=== PATIENT | male | born 1990 ===

== ENCOUNTER 2017-02-21 05:40 | Inpatient (IN) | payer OTHER ==
[~2017-02-21] VITALS: Ht 172.7 cm; Wt 68.0 kg
[2017-02-21] VITALS (18 sets, daily range): BP systolic 103–147; BP diastolic 53–93
[~2017-02-21 05:40] MED LIST: NKM
[2017-02-21] MEDS ORDERED: Bupivacaine w/Epi 0.5% 30ml Vial INJ ONE (06:37)
[2017-02-21] MEDS ORDERED: Thrombin 5000 units TOPIC ONE (06:37)
[2017-02-21] MEDS ORDERED: Bacitracin 50000 Units Vial ONE (06:38)
[2017-02-21] MEDS ORDERED: Gelfoam Absorbable 1gm powder pkt TOPIC ONE (06:38)
[2017-02-21] MEDS ORDERED: Thrombin 5000 units spray kit TOPIC ONE (06:38)
--- NOTE | 2017-02-21 07:06 | Pre-Procedure Note/Attestation ---
Pre-Procedure Note/Attestation Complete Prior to Procedure Procedure Narrative: Disc Herniation with Instability L5/S1 Planned procedure: ALIF L5/S1 Indications for Procedure Pre-Operative Diagnosis: Disc Herniation with Instability L5/S1 Attestation I attest that I discussed the nature of the procedure; its benefits; risks and complications; and alternatives (and the risks and benefits of such alternatives ), prior to the procedure, with the patient (or the patient's legal exhibit display representative). I attest that, if there was a reasonable possibility of needing a blood transfusion, the patient (or the patient's legal exhibit display representative) was given the [facility] standardized written summary, pursuant to the [place] Blood Safety Act ([place] Health and Safety Code # 1645, as amended). I attest that I re-evaluated the patient just prior to the surgery and that there has been no change in the patient's H&P, except as documented below: MARGI GENAO Feb 21, 2017 07:06
[2017-02-21] MEDS ORDERED: Propofol 10mg/ml 100ml btl IV ONE (08:00)
[2017-02-21] MEDS ORDERED: LR 1000ml ONE (08:00)
[2017-02-21] MEDS ORDERED: Midazolam 2mg/2ml Inj ONE (08:00)
[2017-02-21] MEDS ORDERED: fentaNYL 100 mcg/2 mL IV ONE (08:00)
[2017-02-21] MEDS ORDERED: NS Irrig 1000ml ONE (08:00)
[2017-02-21] MEDS ORDERED: Sterile Water Irrig 1000ml IRRIG ONE (08:00)
[2017-02-21] MEDS ORDERED: Zemuron 50mg/5ml Inj IV ONE (08:00)
[2017-02-21] MEDS ORDERED: LR 1000ml 1,000 ML IVLG SCH (08:03)
--- NOTE | 2017-02-21 08:08 | Anethesia Preoperative Eval ---
Anesthesia Pre-op PMH/ROS General Date of Evaluation: Feb 21, 2017 Time of Evaluation: 07:00 Anesthesiologist: Teresa ASA Score: ASA 1 Mallampati Score Class I : Soft palate, uvula, fauces, pillars visible Class II: Soft palate, uvula, fauces visible Class III: Soft palate, base of uvula visible Class IV: Only hard plate visible Mallampati Classification: Class I Surgeon: David Diagnosis: Disc bulge Surgical Procedure: ALIF L5-S1 Anesthesia History: none Social History: smoking - 1 PPD Family History: no anesthesia problems Allergies: Coded Allergies: No Known Allergies (Unverified , 02/17/17) Medications: see eMAR Past Medical History Cardiovascular: Denies: CAD, HTN, [place], arrhythmia, other, valve dz Pulmonary: Denies: COPD, TREASURE, asthma, other Gastrointestinal/Genitourinary: Denies: CRI, ESRD, GERD, other Neurologic/Psychiatric: Reports: depression/anxiety, Denies: CVA, TIA, dementia, other Endocrine: Denies: DM, hypothyroidism, other, steroids HEENT: Denies: [place] (L), [place] (R), cataract (L), cataract (R), glaucoma, other Hematology/Immune: Denies: DVT, anemia, bleeding disorder, other Musculoskeletal/Integumentary: Denies: DDD, DJD, OA, RA, edema, other PMH Narrative: Anxiety/depression PSxH Narrative: EGD Anesthesia Pre-op Phys. Exam Physician Exam Last Vital Signs Date Time Temp Pulse Resp B/P Pulse Ox O2 Delivery O2 Flow Rate FiO2 02/21/17 06:15 98.1 81 20 128/81 99 Room Air Constitutional: NAD Neurologic: CN 2-12 intact Cardiovascular: RRR, no M/R/G Respiratory: CTA Gastrointestinal: S/NT/ND Airway Exam Mallampati Score: Class II MO: full ROM: full Teeth: intact Anesthesia Pre-op A/P Labs WNL Studies Pre-op Studies: EKG - SR with some atrial disrhythmia Risk Assessment & Plan Assessment: Healthy male for ALIF Plan: GETA Status Change Before Surgery: No Pre-Antibiotics Drug: Ancef Given Within 1 Hr of Incision: Yes Time Given: 07:20 CIRO LUCIA M.D. Feb 21, 2017 08:08
--- NOTE | 2017-02-21 08:09 | Immediate Post-Op Evaluation ---
Immediate Post-Op Evalulation Immediate Post-Op Evalulation Procedure: ALIF L5-S1 Date of Evaluation: Feb 21, 2017 Time of Evaluation: 09:15 IV Fluids: 1000 Estimated Blood Loss: 75 Blood Pressure Systolic: 143 Blood Pressure Diastolic: 93 Pulse Rate: 100 Respiratory Rate: 18 O2 Sat by Pulse Oximetry: 99 Temperature (Fahrenheit): 97.1 Pain Score (1-10): 2 Nausea: No Vomiting: No Complications No complication Patient Status: awake, patent, extubated, none Hydration Status: adequate Drug: Ancef Given Within 1 Hr of Incision: Yes Time Given: 07:20 CIRO LUCIA M.D. Feb 21, 2017 08:09
[2017-02-21] MEDS ORDERED: LORazepam Inj 2mg/ml 1ml IV PRN (08:15)
[2017-02-21] MEDS ORDERED: LR 1000ml 1,000 ML IV SCH (08:15)
[2017-02-21] MEDS ORDERED: DiphenhydrAMINE 50mg/ml Inj IVP PRN (08:15)
[2017-02-21] MEDS ORDERED: Acetaminophen 650 MG SUPP RECTAL PRN (08:45)
--- NOTE | 2017-02-21 08:46 | Operative Note - PDOC ---
Operative Note Operative Note Chief Complaint: Low Back Pain Pre-op Diagnosis: Disc Herniation with Instability L5/S1 Procedure: L4/S1 Anterior Lumbar Decompression and Fusion with InFix implant Post-op Diagnosis: same as pre-op Operative Findings: consistent w/pre-op dx studies Surgeon: David Dental Chairside Assistant: TRACEY Roy Additional Surgeons: Dr. Mcdaniels - Vascular Access Anesthesiologist: Omega Anesthesia: general Specimen: yes Complications: none Estimated Blood Loss: minimal Drains: none Implant(s) used?: Yes - Shashank InFix Medium 12mm heigh, 3+3 degree, Shashank DBMARGI MARIE Feb 21, 2017 08:46
[2017-02-21] MEDS: Hydromorphone 0.5mg/0.5ml inj IVP PRN ×4 (09:19→10:24)
[2017-02-21] MEDS: PCA HYDROmorphone 1mg/ml 30 ML IV PRN (09:26)
[2017-02-21] MEDS: Meperidine 25mg/0.5ml Inj (FOR RIGORS ONLY) IV PRN ×2 (09:32→09:50)
[2017-02-21] MEDS ORDERED: LORazepam 1mg tab ORAL PRN (11:00)
[2017-02-21] MEDS ORDERED: Naloxone 0.4mg/ml Inj IVP PRN (11:00)
[2017-02-21] MEDS ORDERED: Rate Change PCA 1 Each MISC PRN (11:00)
--- NOTE | 2017-02-21 12:26 | Diagnostic Imaging Report ---
Indication: PAIN Technique: Intraoperative digital images Comparison: None Findings:Initial images demonstrate surgical needle projected anterior to what is presumably the L5-S1 disc. Subsequent images document placement of a disc prosthesis at L5-S1 Impression:Intraoperative imaging, as described
[2017-02-21] MEDS ORDERED: ceFAZolin sod 1 GM in D5W 55 ML IV SCH (16:00)
--- NOTE | 2017-02-21 17:28 | 48 Hour Post Anesthesia Eval ---
Post Anesthesia Evaluation Procedure: ALIF L5-S1 Date of Evaluation: Feb 21, 2017 Time of Evaluation: 17:25 Blood Pressure Systolic: 119 0: 67 Pulse Rate: 73 Respiratory Rate: 20 Temperature (Fahrenheit): 98.6 O2 Sat by Pulse Oximetry: 99 Airway: patent Nausea: No Vomiting: No Pain Intensity: 3 Hydration Status: adequate Cardiopulmonary Status: Stable Mental Status/LOC: other - Patient having difficulty urinating. Discussed with RN and will consider straight cath if warrented. Follow-up Care/Observations: Follow urine output Post-Anesthesia Complications: No anesthetic complication except that difficulty urinating most likely due to opiate pain meds. Follow-up care needed: N/A CIRO LUCIA M.D. Feb 21, 2017 17:28
--- NOTE | 2017-02-21 18:45 | Operative Note - Dictated ---
DATE OF OPERATION: 02/21/2017 SURGEON: Pancho Hernandez M.D. ADVISORY APPLICATION DEVELOPER AND VASCULAR APPROACH: Dr. Mcdaniels. Incendiary Powder Mixer for the spine portion of the procedure is Pancho CABEZAS. ANESTHESIA: Dr. Scott, general endotracheal with arterial blood pressure monitoring. PREOPERATIVE DIAGNOSIS: Disk collapse, instability, and herniation, L5-S1. POSTOPERATIVE DIAGNOSIS: Disk collapse, instability, and herniation, L5-S1. OPERATIVE PROCEDURE: Left pararectus approach to the anterior lumbar spine. Vessel mobilization and retraction by Dr. Mcdaniels 1 using a table fixed frame and reverse tip blades. Anterior annulotomy, nuclear diskectomy, partial vertebrectomy, L5-S1, bilateral microneurolysis and neural foraminotomy at L5-S1, open reduction and internal fixation using a medium footprint infix cage with 12 mm of height and 3+ 3 degrees of broken lordosis. Fusion using demineralized bone protein and autogenous bone. Use of image intensification for cage placement and level check. Use of pulse oximetry to check lower extremity vasculature. DESCRIPTION OF PROCEDURE: The patient was prepped and draped after induction of satisfactory general anesthesia in supine position. Bolster was placed in the lumbar area to create normal lordosis. A left-sided pararectus incision was made by Dr. Mcdaniels, the rectus was mobilized. The retroperitoneum was entered and the anterior aspect of the spine at L5-S1 was identified. The vessels were cleared and retracted superiorly, medially, and laterally exposing the anterior anulus of the disk at L5-S1 through the anteromedial and to the lateral corners. The table fixed frame was used with reverse tip blades to expose the entire anterior anulus to protect the vessels. The middle of the disc was marked, checked with image. Anterior annulotomy was done with a 10 blade. The soft disc and cartilaginous endplate was then sequentially removed from front to back using Kerrisons pituitaries and rongeurs along with a lordotic detachable Imtiaz tree distraction plugs. These plug started 8 progressed to 13 mm. There was used [id number] to dissect progressively further back on the people body removing the cartilaginous endplate mixing the posterior disc anulus and the posterior longitudinal ligament, both were released and removed exposing the dural sac and exiting nerve root at the lumbosacral level. Each foramen was opened widely. The space was templated out to 12 mm in height once a full decompression had been accomplished and all remnants of the disk and cartilaginous endplate have been removed. The template was checked and a construct was chosen with a medium footprint using a 3+ 3 degrees of lordosis. The endplates were tapped into place. The side struts were inserted, the position was checked. The side struts were then cold welded and position was again checked. Demineralized bone matrix and autogenous bone was placed between the 2 endplates. The vessels were released and checked and then closed in layers including anteroposterior sheath, subcutaneous, and skin. Blood loss was less than 50 mL. The patient was placed in a bulky dressing and returned to recovery room in good condition. Final x-rays revealed that the template was posterior on the vertebral body and had created extension of disc height with normal lordosis. On AP view, the endplates were exactly matched with good stability through the pegs and good centering of the construct on the spinous process in between the pedicles. The patient was then returned to recovery room in good condition. Pancho Hernandez M.D. DR: NADER JOB#: [id number] CC:
--- NOTE | 2017-02-21 18:45 | Operative Note - Dictated ---
DATE OF OPERATION: 02/21/2017 VASCULAR SURGEON: Rafa Mcdaniels M.D. SPINE SURGEON: Pancho Hernandez M.D. PREOPERATIVE DIAGNOSIS: Degenerative disc disease. POSTOPERATIVE DIAGNOSIS: Degenerative disc disease. PROCEDURE PERFORMED: Anterior retroperitoneal exposure of L5-S1 vertebral interspace. INDICATIONS: The patient is a very pleasant gentleman, who is seen in my office prior to surgery and scheduled for anterior fusion at L5-S1. He has been made aware of the risks of surgery including possibly vascular injury, deep venous thrombosis, and possible need for blood transfusion. He had no prior intra-abdominal surgery in the past. DESCRIPTION OF FINDINGS: A low vertical midline incision was used. A left retroperitoneal approach was used. There is no peritoneal or ureteral violation. There is no vascular injury. Exposure of L5-S1 was obtained below the iliac bifurcation and confirmed with fluoroscopy. On completion, the peritoneum and ureter were intact. The iliac vessels were intact. Blood loss was approximately 50 mL. DESCRIPTION OF PROCEDURE: The patient was taken to the operating room. General anesthesia was used. IV antibiotics were given. The patient's abdomen was prepped and draped. Appropriate time-out of procedures were taken. A low vertical midline incision was used. Anterior fascia was incised longitudinally midline. A plane was identified posterior to the left rectus abdominis developed posterolaterally towards the patient's left. Retroperitoneal space was entered below the arcuate line and the peritoneum and ureter were mobilized towards the patient's right exposing the left common iliac vessels. Dissection was carried on undersurface of the left common iliac vein. The middle sacral artery and vein were identified and ligated with vascular clips and divided and this allowed us to retract the left common iliac vessels superiorly and laterally and expose the anterior surface of the L5 and S1. The Omni retractor was set in place. Fluoroscopy was then used to confirm the appropriate level and then instrumentation was performed at L5-S1 dictated separately. On completion, retractors were gently removed. The peritoneum and ureter were intact. The iliac vessels were intact. Anterior fascia was then closed using #1 PDS in a running fashion. The skin and subcutaneous tissue were closed using 3-0 Vicryl and 4-0 Monocryl in a running subcuticular closure technique. ESTIMATED BLOOD LOSS: Less than 100 mL. COMPLICATIONS: None. Rafa Mcdaniels M.D. DR: CRISTÓBAL JOB#: [id number] CC:
[2017-02-21] MEDS: PCA shift volume MISC SCH (19:00)
[2017-02-21] MEDS: ceFAZolin sod 1 GM in D5W 55 ML IV SCH (20:07)
[2017-02-22] VITALS: BP 116/79
[2017-02-22] MEDS: ceFAZolin sod 1 GM in D5W 55 ML IV SCH ×3 (03:43→19:22)
[2017-02-22 04:00] VITALS: BP 113/71
[2017-02-22] MEDS: DiphenhydrAMINE 50mg/ml Inj IVP PRN ×2 (04:56→23:23)
[2017-02-22] MEDS: PCA shift volume MISC SCH ×2 (07:00→19:12)
[2017-02-22 08:00] VITALS: BP 117/71
[2017-02-22] MEDS: PCA HYDROmorphone 1mg/ml 30 ML IV PRN (09:58)
[2017-02-22 12:40] VITALS: BP 132/85
[2017-02-22 16:00] VITALS: BP 119/75
[2017-02-22 20:00] VITALS: BP 112/72
[2017-02-23] VITALS: BP 130/76
[2017-02-23 04:00] VITALS: BP 131/65
[2017-02-23] MEDS: ceFAZolin sod 1 GM in D5W 55 ML IV SCH ×2 (04:15→10:48)
[2017-02-23] MEDS: PCA shift volume MISC SCH (07:11)
[2017-02-23 08:20] VITALS: BP 129/73
[2017-02-23] MEDS ORDERED: Norco 5mg/325mg tab ORAL PRN (09:00)
[2017-02-23] MEDS ORDERED: Norco 7.5mg/325mg tab ORAL PRN (09:00)
[2017-02-23] MEDS ORDERED: Naloxone 0.4mg/ml Inj IVP PRN (09:00)
[2017-02-23] MEDS ORDERED: HYDROmorphone 1mg/ml Carpuject IVP PRN (09:00)
[2017-02-23] MEDS ORDERED: HYDROmorphone 1mg/ml Carpuject SUBQ PRN (09:00)
--- NOTE | 2017-02-23 09:20 | General Progress Note ---
Assessment/Plan Assessment/Plan Disc Herniation with Instability L5/S1 ALIF L5/S1 PLAN 1. incentive spirometry 2. SCD 3. PT evaluation and therapy 4. Hydration 5. Pain management 6. discharge once stable with outpatient follow up Subjective Date patient seen: Feb 22, 2017 Time patient seen: 09:00 Allergies: Coded Allergies: No Known Allergies (Unverified , 02/17/17) Subjective post op care noted Objective reviewed Height (Feet): 5 Height (Inches): 8.00 Weight (Pounds): 150 Objective WDWN NAD clear breath sounds bilaterally without rhonchi or wheeze [id number] without MRG no bowel sounds no CCE nonfocal JOSSUE HOLCOMB Feb 23, 2017 09:20
--- NOTE | 2017-02-23 09:21 | General Progress Note ---
Assessment/Plan Assessment/Plan Disc Herniation with Instability L5/S1 ALIF L5/S1 PLAN 1. incentive spirometry 2. SCD 3. PT evaluation and therapy 4. Hydration 5. Pain management 6. discharge planning once able to take po Subjective Allergies: Coded Allergies: No Known Allergies (Unverified , 02/17/17) Subjective post op care noted ambulating with PT Objective Last 24 Hour Vital Signs Date Time Temp Pulse Resp B/P Pulse Ox O2 Delivery O2 Flow Rate FiO2 02/23/17 08:20 98.2 99 20 129/73 98 Room Air 02/23/17 06:23 16 02/23/17 04:00 98.2 91 18 131/65 97 Room Air 02/23/17 00:00 98.6 84 19 130/76 95 Room Air 02/23/17 00:00 18 02/22/17 20:00 98.2 91 20 112/72 97 Room Air 02/22/17 16:00 98.2 89 20 119/75 100 Room Air 02/22/17 16:00 18 02/22/17 12:40 98.6 90 20 132/85 98 Room Air 02/22/17 12:00 18 02/22/17 10:39 97.9 02/22/17 10:03 18 02/22/17 10:01 18 Intake and Output 02/22/17 02/23/17 19:00 07:00 Intake Total 100 ml 1100 ml Output Total 700 ml 1000 ml Balance -600 ml 100 ml IV Total 100 ml 1100 ml Output Urine Total 700 ml 1000 ml # Voids 1 Height (Feet): 5 Height (Inches): 8.00 Weight (Pounds): 150 Objective WDWN NAD clear breath sounds bilaterally without rhonchi or wheeze [id number] without MRG no bowel sounds no CCE nonfocal JOSSUE HOLCOMB Feb 23, 2017 09:21
[2017-02-23] MEDS: Tamsulosin 0.4mg cap ORAL SCH ×2 (10:48→17:08)
[2017-02-23 11:45] VITALS: BP 127/77
[2017-02-23] MEDS: Norco 7.5mg/325mg tab ORAL PRN ×3 (13:43→22:24)
--- NOTE | 2017-02-23 15:05 | General Surgery Progress Note ---
General Surgery-Progress Note Subjective Procedure Performed L4/S1 Anterior Lumbar Decompression and Fusion with InFix implant Chief Complaint: Can not urinate on own. Symptoms: improved Objective Last 24 Hour Vital Signs Date Time Temp Pulse Resp B/P Pulse Ox O2 Delivery O2 Flow Rate FiO2 02/23/17 12:00 18 02/23/17 11:45 97.7 100 20 127/77 97 Room Air 02/23/17 08:20 98.2 99 20 129/73 98 Room Air 02/23/17 08:00 16 02/23/17 06:23 16 02/23/17 04:00 98.2 91 18 131/65 97 Room Air 02/23/17 00:00 98.6 84 19 130/76 95 Room Air 02/23/17 00:00 18 02/22/17 20:00 98.2 91 20 112/72 97 Room Air 02/22/17 16:00 98.2 89 20 119/75 100 Room Air 02/22/17 16:00 18 I&O Intake and Output 02/22/17 02/23/17 19:00 07:00 Intake Total 100 ml 1100 ml Output Total 700 ml 1000 ml Balance -600 ml 100 ml IV Total 100 ml 1100 ml Output Urine Total 700 ml 1000 ml # Voids 1 Dressing: dry Wound: clean Drains: none Additional Comments Since surgery, patient has not been able to urinate on own. Night of surgery has catheter placed for large volume, next day after sweet removal again unable to initiate, was in and out cathed and again unable to start stream.Urology consult initiated bt Dr. Gusman. Back has minimal pain. No lower GI activity yet, continue NPO. Dr. Gusman following. MARGI GENAO Feb 23, 2017 15:05
[2017-02-23 16:06] VITALS: BP 146/84
[2017-02-23 20:00] VITALS: BP 142/84
[2017-02-24 04:00] VITALS: BP 121/73
[2017-02-24] MEDS: Norco 7.5mg/325mg tab ORAL PRN ×4 (04:29→19:12)
[2017-02-24 08:00] VITALS: BP 109/79
--- NOTE | 2017-02-24 08:05 | General Progress Note ---
Assessment/Plan Assessment/Plan Disc Herniation with Instability L5/S1 ALIF L5/S1 urinary retention- improved PLAN 1. incentive spirometry 2. flomax ? dc on discharge 3. PT evaluation and therapy 4. Hydration; still without bowel sounds and flatus 5. Pain management 6. discharge planning once able to take po Subjective Allergies: Coded Allergies: No Known Allergies (Unverified , 02/17/17) Subjective post op care noted ambulating with PT able to urinate Objective Last 24 Hour Vital Signs Date Time Temp Pulse Resp B/P Pulse Ox O2 Delivery O2 Flow Rate FiO2 02/24/17 04:00 97.0 81 18 121/73 99 Room Air 02/23/17 20:00 98.2 94 18 142/84 99 Room Air 02/23/17 16:06 98.8 94 21 146/84 97 Room Air 02/23/17 12:00 18 02/23/17 11:45 97.7 100 20 127/77 97 Room Air 02/23/17 08:20 98.2 99 20 129/73 98 Room Air Intake and Output 02/23/17 02/24/17 19:00 07:00 Intake Total 1000 ml Output Total 200 ml 2100 ml Balance 800 ml -2100 ml IV Total 1000 ml Output Urine Total 200 ml 2100 ml # Voids 1 4 Height (Feet): 5 Height (Inches): 8.00 Weight (Pounds): 150 Objective WDWN NAD clear breath sounds bilaterally without rhonchi or wheeze [id number] without MRG no bowel sounds no CCE nonfocal JOSSUE HOLCOMB Feb 24, 2017 08:05
[2017-02-24] MEDS: Tamsulosin 0.4mg cap ORAL SCH ×2 (09:08→17:58)
[2017-02-24 12:00] VITALS: BP 110/75
[2017-02-24 16:00] VITALS: BP 111/66
[2017-02-24 20:00] VITALS: BP 130/69
[2017-02-25] VITALS: BP 110/77
[2017-02-25 04:00] VITALS: BP 121/79
[2017-02-25] MEDS: Norco 7.5mg/325mg tab ORAL PRN ×3 (05:03→16:52)
[2017-02-25 08:00] VITALS: BP 129/68
[2017-02-25] MEDS: Tamsulosin 0.4mg cap ORAL SCH ×2 (08:30→18:00)
--- NOTE | 2017-02-25 08:50 | General Progress Note ---
Assessment/Plan Assessment/Plan Disc Herniation with Instability L5/S1 ALIF L5/S1 urinary retention- improved PLAN 1. incentive spirometry 2. flomax ? dc on discharge 3. PT evaluation and therapy 4. advance diet 5. Pain management 6. discharge planning once able to take po Subjective Allergies: Coded Allergies: No Known Allergies (Unverified , 02/17/17) Subjective post op care noted started on clears Objective Last 24 Hour Vital Signs Date Time Temp Pulse Resp B/P Pulse Ox O2 Delivery O2 Flow Rate FiO2 02/25/17 08:00 97.9 99 19 129/68 94 Room Air 02/25/17 06:02 98.2 02/25/17 04:00 97.9 76 18 121/79 98 Room Air 02/25/17 00:00 98.2 82 18 110/77 98 Room Air 02/24/17 20:00 98.0 80 18 130/69 98 Room Air 02/24/17 16:00 97.9 92 19 111/66 98 Room Air 02/24/17 12:00 97.7 88 19 110/75 97 Room Air Intake and Output 02/24/17 02/25/17 19:00 07:00 Intake Total 700 ml 500 ml Output Total 2400 ml Balance -1700 ml 500 ml Intake Oral 700 ml 500 ml Output Urine Total 2400 ml # Voids 2 Height (Feet): 5 Height (Inches): 8.00 Weight (Pounds): 150 Objective WDWN NAD clear breath sounds bilaterally without rhonchi or wheeze [id number] without MRG no bowel sounds no CCE nonfocal JOSSUE HOLCOMB Feb 25, 2017 08:50
[2017-02-25 12:00] VITALS: BP 131/77
[2017-02-25 16:00] VITALS: BP 119/68
--- NOTE | 2017-02-28 12:04 | Discharge Summary ---
Discharge Summary Hospital Course Date of Admission Feb 21, 2017 at 05:40 Date of Discharge Feb 25, 2017 at 18:30 Admitting Diagnosis disc collapse, instability and herniation L5 S1 Reason for Hospitalization: elective surgery HPI Kurt Gutierres is a 26 year old male who was admitted on Feb 21, 2017 at 05:40 for L5 S1 disc instability, collapse and herniation for elective surgery Consultations dr Gusman IM Procedures s/p L4/S1 Anterior Lumbar Decompression and Fusion with InFix implant by dr Hernandez Hospital Course s/p elective surgery pain management neurovascular status intact PT OT, able to ambulate SCD when in bed IS while in bed dressing C/D/I initially with IVF unable to urinate and required insertion of Wells, which yielded large amount of urine Wells dc next day, was in need of I/O cath again started on Flomax able to void bowel sound returned, passed, flatus, started on CL diet and advanced as tolerated tolerated diet surgery cleared for dc, scripts provided by surgeon fup as outpatient with surgeon FINAL DIAGNOSIS Disc Herniation with Instability L5/S1 s/p L4/S1 Anterior Lumbar Decompression and Fusion with InFix implant urinary retention postoperative pain Discharge Condition Upon Discharge: stable Discharge Disposition Patient was discharged to Home (01) Discharge Diagnoses: Discharge Instructions Discharge Instructions Special Instructions I have been assigned to complete a D/C Summary on this account. I was not involved in the patient management Carolina Sorensen NP (Vanchtein) Feb 28, 2017 12:04
== END 2017-02-25 18:30 | disposition home or self-care (01) | DRG 460 ==
LOC: SDSOVERFLO 05:40 → 3E 10:26 → SDSOVERFLO 02-24 12:51 → 3E 02-24 12:52
PROC: 0SB40ZZ Excision of Lumbosacral Disc, Open Approach (ICD-10-PCS; principal; 2017-02-21 07:00)
PROC: 0SG30A0 Fusion of Lumbosacral Joint with Interbody Fusion Device, Anterior Approach, Anterior Column, Open Approach (ICD-10-PCS; principal; 2017-02-21 07:00)
DX: M51.17 Intervertebral disc disorders with radiculopathy, lumbosacral region (principal); F17.200 Nicotine dependence, unspecified, uncomplicated; M53.2X7 Spinal instabilities, lumbosacral region; R33.9 Retention of urine, unspecified
CPT/HCPCS: 36415; 72020; 76001; 86850; 86900; 86901; 87081; 94003; 94150; J2180; J2250